=== PATIENT | female | born 1945 | race Caucasian/White ===

== ENCOUNTER 2024-03-04 16:37 | Inpatient (IN) | payer MEDICARE ==
[~2024-03-04] VITALS: Ht 170.2 cm; Wt 79.4 kg
[2024-03-04] MEDS: IV NS 0.9% 1,000 ML BAG IV ONE ×2 (17:05→18:15)
[2024-03-04 17:23] LABS: BASOPHILS % (AUTO) 0.3 % (0.0-2.0); EOSINOPHILS % (AUTO) 0.7 % (0.0-6.0); HEMATOCRIT 43 % (33-45); HEMOGLOBIN 13.5 g/dL (11.5-14.8); LYMPHOCYTES # (AUTO) 1.2 K/uL (0.8-4.8); LYMPHOCYTES % (AUTO) 19.9 % (20.0-44.0); MEAN CORPUSCULAR HEMOGLOBIN 29 PG (26.0-33.0); MEAN CORPUSCULAR HGB CONC 32 g/dl (31.0-36.0); MEAN CORPUSCULAR VOLUME 92 fL (82-100); MONOCYTES # (AUTO) 0.4 K/uL (0.1-1.30); MONOCYTES % (AUTO) 6.6 % (2.0-12.0); NEUTROPHILS # (AUTO) 4.4 K/uL (1.8-8.9); NEUTROPHILS % (AUTO) 72.5 % (43.0-81.0); PLATELET COUNT (AUTO) 334 K/uL (150-450); RED BLOOD CELL COUNT(AUTO) 4.63 MIL/uL (4.0-5.2); RED CELL DISTRIBUTION WIDTH 17.8 % (11.5-15.0); WHITE BLOOD COUNT (AUTO) 6.1 K/uL (4.3-11.0)
[2024-03-04] MEDS ORDERED: LOPE2CAP14 PO (17:34)
[2024-03-04] MEDS ORDERED: BUDE10.26 IH (17:34)
[2024-03-04] MEDS ORDERED: GEMTESA PO (17:34)
[2024-03-04] MEDS ORDERED: METO25TA4 PO (17:34)
[2024-03-04] MEDS ORDERED: DICL100G26 TP (17:34)
[2024-03-04] MEDS ORDERED: BISA10SU11 RC (17:34)
[2024-03-04] MEDS ORDERED: POTA10CA43 PO (17:34)
[2024-03-04] MEDS ORDERED: SUCR1TAB PO (17:34)
[2024-03-04] MEDS ORDERED: FOLI0.4T6 PO (17:34)
[2024-03-04] MEDS ORDERED: ALBU8.5H8 IH (17:34)
[2024-03-04] MEDS ORDERED: SPIR25TA PO (17:34)
[2024-03-04] MEDS ORDERED: MUPI22OI2 TP (17:34)
[2024-03-04] MEDS ORDERED: MELA3TAB41 PO (17:34)
[2024-03-04] MEDS ORDERED: MAG-135 PO (17:34)
[2024-03-04] MEDS ORDERED: EZET10TA15 PO (17:34)
[2024-03-04] MEDS ORDERED: IPRA3AMP22 IH (17:34)
[2024-03-04] MEDS ORDERED: ACET-2030 PO (17:34)
[2024-03-04] MEDS ORDERED: BENZ-13 PO (17:34)
[2024-03-04] MEDS ORDERED: PANT40TA2 PO (17:34)
[2024-03-04] MEDS ORDERED: CRAN500T3 PO (17:34)
[2024-03-04] MEDS ORDERED: SACU1TAB PO (17:34)
[2024-03-04] MEDS ORDERED: DOCU100C36 PO (17:34)
[2024-03-04] MEDS ORDERED: DULO60CA64 PO (17:34)
[2024-03-04] MEDS ORDERED: MAGN400O6 PO (17:34)
[2024-03-04] MEDS ORDERED: NYST30CR2 TP (17:34)
[2024-03-04] MEDS ORDERED: LIDO1ADH82 TP (17:34)
[2024-03-04] MEDS ORDERED: OMEG100037 PO (17:34)
[2024-03-04] MEDS ORDERED: FURO-144 PO (17:34)
[2024-03-04] MEDS ORDERED: FLUT16SP BNOSTRILS (17:34)
[2024-03-04] MEDS ORDERED: AMIO100T4 PO (17:34)
[2024-03-04] MEDS ORDERED: CANA100T PO (17:34)
[2024-03-04] MEDS ORDERED: SODI4VIA15 IH (17:34)
[2024-03-04] MEDS ORDERED: GUAI600T31 PO (17:34)
[2024-03-04] MEDS ORDERED: MAGN1TAB7 PO (17:34)
[2024-03-04] MEDS ORDERED: ATOR80TA PO (17:34)
[2024-03-04] MEDS ORDERED: APIX5TAB PO (17:34)
[2024-03-04 17:47] LABS: ALANINE AMINOTRANSFERASE 51 U/L (12-78); ALKALINE PHOSPHATASE 94 U/L (46-116); ASPARTATE AMINOTRANSFERASE 22 U/L (15-37); BILIRUBIN,DIRECT 0.1 mg/dL (0.0-0.2); BILIRUBIN,TOTAL 0.5 mg/dL (0.2-1.0); CALCIUM, SERUM 8.9 mg/dL (8.5-10.1); CARBON DIOXIDE 29 mmol/L (21-32); CHLORIDE 103 mmol/L (98-107); CREATININE 1.1 mg/dL (0.6-1.3); GLUCOSE 120 mg/dL (74-106); POTASSIUM 3.6 mmol/L (3.5-5.1); SODIUM SERUM 141 mmol/L (136-145); TOTAL PROTEIN, SERUM 6.7 g/dL (6.4-8.2); UREA NITROGEN, BLOOD 13 mg/dL (7-18)
[2024-03-04 17:57] LABS: LACTIC ACID 2.4 mmol/L (0.4-2.0)
[2024-03-04 18:04] LABS: INR 0.97 (0.91-1.10); PARTIAL THROMBOPLASTIN TIME 28.2 SEC (24.3-34.3); PROTHROMBIN TIME 10.3 SECS (9.2-11.1)
[2024-03-04] MEDS: PIPERACILLIN /TAZOBACTAM 3.375 G in IV D5W 50 ML IV ONE (18:20)
[2024-03-04] MEDS ORDERED: ASPIRIN 81 MG TAB.CHEW PO ONE (19:30)
[2024-03-04] MEDS ORDERED: FAMOTIDINE/PF INJ 20 MG/2 ML VIAL IV ONE (19:30)
[2024-03-04] MEDS ORDERED: MAG HYDROX/AL HYDROX/SIMETH 30 ML UDC PO ONE (19:30)
[2024-03-04] MEDS ORDERED: ACETAMINOPHEN 325 MG TABLET ONE (19:33)
[2024-03-04] MEDS: ACETAMINOPHEN 325 MG TABLET PO ONE (19:36)
[2024-03-04] MEDS ORDERED: ACETAMINOPHEN 325 MG TABLET PO PRN (20:00)
[2024-03-04] MEDS ORDERED: MAGNESIUM HYDROXIDE 30 ML UDC PO PRN (20:00)
[2024-03-04] MEDS ORDERED: ZOLPIDEM TARTRATE 5 MG TABLET PO PRN (20:00)
[2024-03-04] MEDS ORDERED: MAG HYDROX/AL HYDROX/SIMETH 30 ML UDC PO PRN (20:00)
[2024-03-04] MEDS ORDERED: Z GUARD REMEDY 4 OZ OINT TP PRN (20:00)
[2024-03-04] MEDS ORDERED: ONDANSETRON HCL/PF 4 MG/2 ML VIAL IVP PRN (20:00)
[2024-03-04] MEDS ORDERED: BISACODYL SUPP (10 MG) 10 MG/SUPP.RECT SUPP.RECT RC PRN (20:30)
[2024-03-04 21:25] VITALS: BP 130/41; TEMP 98.1; O2SAT 98
[2024-03-04] MEDS: IV NS 0.9% 1,000 ML IV PRN (22:18)
[2024-03-04] MEDS ORDERED: CEFTRIAXONE 1GM BAG (ER ONLY) 50 ML IV ONE (22:19)
[2024-03-04] MEDS: CEFTRIAXONE 1 G in IV D5W 50 ML IV SCH (22:29)
[2024-03-04] MEDS ORDERED: ALBUTEROL FS 2.5 MG/3 ML VIAL.NEB NEB PRN (22:30)
[2024-03-04] MEDS: SUCRALFATE 1 G TABLET PO SCH (22:55)
[2024-03-04] MEDS ORDERED: MELATONIN 3 MG TABLET PO PRN (23:00)
[2024-03-05] VITALS (12 sets, daily range): BP systolic 103–121; BP diastolic 56–73; TEMP 97.5–98.4; O2SAT 60–99
[2024-03-05 02:14] LABS: APPEARANCE,URINE CLEAR (CLEAR); BILIRUBIN,URINE NEGATIVE (NEGATIVE); BLOOD, URINE TRACE-INTA Ery/uL (NEGATIVE); COLOR,URINE YELLOW (YELLOW); KETONES,URINE NEGATIVE (NEGATIVE); LEUKOCYTE ESTERASE ,URINE 2+ (NEGATIVE); NITRITE, URINE NEGATIVE (NEGATIVE); PROTEIN,URINE NEGATIVE (NEGATIVE); UGLUCOSE 3+ mg/dL (NEGATIVE); UROBILINOGEN,URINE 0.2 EU/dL (0.2)
[2024-03-05 02:44] LABS: ADD URINE CULTURE YES; BACTERIA,URINE 2+ /HPF (None Seen); RBC,URINE NONE SEEN /HPF (0-2); WBC,URINE 21-50 /HPF (0-3)
[2024-03-05 06:02] LABS: BASOPHILS % (AUTO) 0.2 % (0.0-2.0); EOSINOPHILS % (AUTO) 0.7 % (0.0-6.0); HEMATOCRIT 28 % (33-45); HEMOGLOBIN 8.6 g/dL (11.5-14.8); LYMPHOCYTES % (AUTO) 25.3 % (20.0-44.0); MEAN CORPUSCULAR HEMOGLOBIN 30 PG (26.0-33.0); MEAN CORPUSCULAR HGB CONC 31 g/dl (31.0-36.0); MEAN CORPUSCULAR VOLUME 96 fL (82-100); MONOCYTES # (AUTO) 0.5 K/uL (0.1-1.30); MONOCYTES % (AUTO) 11.9 % (2.0-12.0); NEUTROPHILS # (AUTO) 2.5 K/uL (1.8-8.9); NEUTROPHILS % (AUTO) 61.9 % (43.0-81.0); PLATELET COUNT (AUTO) 191 K/uL (150-450)
[2024-03-05 06:20] LABS: UREA NITROGEN, BLOOD 3 mg/dL (7-18)
[2024-03-05] MEDS ORDERED: Medication Not On Formulary EA (Canagliflozin (Invokana) 100 MG) PO SCH (07:30)
[2024-03-05 07:43] LABS: CREATININE 0.1 mg/dL (0.6-1.3); SODIUM SERUM 155 mmol/L (136-145)
[2024-03-05 08:11] LABS: CHLORIDE 135 mmol/L (98-107); POTASSIUM 1.2 mmol/L (3.5-5.1)
[2024-03-05 08:12] LABS: ALBUMIN 0.2 g/dL (3.4-5.0); CALCIUM, SERUM 2.6 mg/dL (8.5-10.1); CARBON DIOXIDE 8 mmol/L (21-32); GLUCOSE 37 mg/dL (74-106); MAGNESIUM 0.6 mg/dL (1.8-2.4)
[2024-03-05] MEDS: EZETIMIBE 10 MG TABLET PO SCH (08:48)
[2024-03-05] MEDS: SPIRONOLACTONE 25 MG TABLET PO SCH (08:49)
[2024-03-05] MEDS: AMIODARONE HCL 200 MG TABLET PO SCH (08:49)
[2024-03-05] MEDS: DULOXETINE HCL 30 MG CAPSULE.DR PO SCH (08:49)
[2024-03-05] MEDS: METOPROLOL SUCCINATE 25 MG TAB.SR.24H PO SCH (08:53)
[2024-03-05] MEDS: SACUBITRIL/VALSARTAN 24/26MG TABLET PO SCH (08:53)
[2024-03-05] MEDS: APIXABAN 5 MG TABLET PO SCH (08:55)
[2024-03-05] MEDS: IPRATROPIUM NEB FS 0.5 MG/2.5 ML AMPUL.NEB NEB SCH (09:00)
[2024-03-05] MEDS: ALBUTEROL FS 2.5 MG/3 ML VIAL.NEB NEB SCH (09:00)
[2024-03-05] MEDS: FLUTICASONE PROPIONATE 16 GM BOTTLE NS SCH (09:55)
[2024-03-05] MEDS: MUPIROCIN OINT 2% 22 GM TUBE TP SCH (09:55)
[2024-03-05 10:38] LABS: BASOPHILS % (AUTO) 0.3 % (0.0-2.0); EOSINOPHILS % (AUTO) 0.8 % (0.0-6.0); HEMATOCRIT 40 % (33-45); HEMOGLOBIN 12.7 g/dL (11.5-14.8); LYMPHOCYTES % (AUTO) 17.7 % (20.0-44.0); MEAN CORPUSCULAR HEMOGLOBIN 29 PG (26.0-33.0); MEAN CORPUSCULAR HGB CONC 32 g/dl (31.0-36.0); MEAN CORPUSCULAR VOLUME 90 fL (82-100); MONOCYTES # (AUTO) 0.4 K/uL (0.1-1.30); MONOCYTES % (AUTO) 7.4 % (2.0-12.0); NEUTROPHILS # (AUTO) 4.2 K/uL (1.8-8.9); NEUTROPHILS % (AUTO) 73.8 % (43.0-81.0); PLATELET COUNT (AUTO) 311 K/uL (150-450); RED BLOOD CELL COUNT(AUTO) 4.41 MIL/uL (4.0-5.2); RED CELL DISTRIBUTION WIDTH 17.6 % (11.5-15.0); WHITE BLOOD COUNT (AUTO) 5.6 K/uL (4.3-11.0)
[2024-03-05 10:50] LABS: CALCIUM, SERUM 8.4 mg/dL (8.5-10.1); CARBON DIOXIDE 28 mmol/L (21-32); CHLORIDE 109 mmol/L (98-107); CREATININE 1.1 mg/dL (0.6-1.3); GLUCOSE 121 mg/dL (74-106); POTASSIUM 3.9 mmol/L (3.5-5.1); SODIUM SERUM 143 mmol/L (136-145); UREA NITROGEN, BLOOD 11 mg/dL (7-18)
[2024-03-05 10:56] LABS: ALANINE AMINOTRANSFERASE 43 U/L (12-78); ALBUMIN 2.7 g/dL (3.4-5.0); ALKALINE PHOSPHATASE 89 U/L (46-116); ASPARTATE AMINOTRANSFERASE 17 U/L (15-37); BILIRUBIN,TOTAL 0.4 mg/dL (0.2-1.0); TOTAL PROTEIN, SERUM 6.3 g/dL (6.4-8.2)
[2024-03-05] MEDS: DAPAGLIFLOZIN PROPANEDIOL 5 MG TABLET PO SCH (11:00)
[2024-03-05] MEDS: BUDESONIDE RESPULE INH 0.5 MG/2 ML AMPUL.NEB IH SCH (11:37)
[2024-03-05 12:12] LABS: ALBUMIN 2.7 g/dL (3.4-5.0); MAGNESIUM 2.3 mg/dL (1.8-2.4)
[2024-03-05] MEDS: ATORVASTATIN 40 MG TABLET PO SCH (21:05)
[2024-03-06] VITALS (9 sets, daily range): BP systolic 101–132; BP diastolic 58–90; TEMP 97.1–98.1; O2SAT 76–98
[2024-03-06 06:53] LABS: BASOPHILS % (AUTO) 0.4 % (0.0-2.0); EOSINOPHILS % (AUTO) 0.5 % (0.0-6.0); HEMATOCRIT 35 % (33-45); HEMOGLOBIN 11.4 g/dL (11.5-14.8); LYMPHOCYTES % (AUTO) 22.2 % (20.0-44.0); MEAN CORPUSCULAR HEMOGLOBIN 29 PG (26.0-33.0); MEAN CORPUSCULAR HGB CONC 33 g/dl (31.0-36.0); MEAN CORPUSCULAR VOLUME 89 fL (82-100); MONOCYTES # (AUTO) 0.3 K/uL (0.1-1.30); MONOCYTES % (AUTO) 6.8 % (2.0-12.0); NEUTROPHILS # (AUTO) 3.2 K/uL (1.8-8.9); NEUTROPHILS % (AUTO) 70.1 % (43.0-81.0); PLATELET COUNT (AUTO) 293 K/uL (150-450); RED BLOOD CELL COUNT(AUTO) 3.93 MIL/uL (4.0-5.2); RED CELL DISTRIBUTION WIDTH 17.6 % (11.5-15.0); WHITE BLOOD COUNT (AUTO) 4.6 K/uL (4.3-11.0)
[2024-03-06 07:05] LABS: CALCIUM, SERUM 8.9 mg/dL (8.5-10.1); CARBON DIOXIDE 31 mmol/L (21-32); CHLORIDE 107 mmol/L (98-107); GLUCOSE 118 mg/dL (74-106); POTASSIUM 4.2 mmol/L (3.5-5.1); SODIUM SERUM 142 mmol/L (136-145); UREA NITROGEN, BLOOD 12 mg/dL (7-18)
[2024-03-06] MEDS: FUROSEMIDE 40 MG TABLET PO SCH (09:21)
[2024-03-06] MEDS: BUDESONIDE RESPULE INH 0.5 MG/2 ML AMPUL.NEB IH SCH (10:00)
[2024-03-07] VITALS (10 sets, daily range): BP systolic 106–128; BP diastolic 71–95; TEMP 97.5–99.1; O2SAT 76–98
[2024-03-07 07:13] LABS: BASOPHILS % (AUTO) 0.4 % (0.0-2.0); CALCIUM, SERUM 9.3 mg/dL (8.5-10.1); CARBON DIOXIDE 24 mmol/L (21-32); CHLORIDE 106 mmol/L (98-107); CREATININE 0.9 mg/dL (0.6-1.3); EOSINOPHILS % (AUTO) 0.8 % (0.0-6.0); GLUCOSE 117 mg/dL (74-106); HEMATOCRIT 37 % (33-45); HEMOGLOBIN 11.9 g/dL (11.5-14.8); LYMPHOCYTES % (AUTO) 20.3 % (20.0-44.0); MEAN CORPUSCULAR HEMOGLOBIN 29 PG (26.0-33.0); MEAN CORPUSCULAR HGB CONC 33 g/dl (31.0-36.0); MEAN CORPUSCULAR VOLUME 89 fL (82-100); MONOCYTES # (AUTO) 0.3 K/uL (0.1-1.30); MONOCYTES % (AUTO) 6.1 % (2.0-12.0); NEUTROPHILS # (AUTO) 3.7 K/uL (1.8-8.9); NEUTROPHILS % (AUTO) 72.4 % (43.0-81.0); PLATELET COUNT (AUTO) 313 K/uL (150-450); POTASSIUM 4.5 mmol/L (3.5-5.1); RED BLOOD CELL COUNT(AUTO) 4.14 MIL/uL (4.0-5.2); RED CELL DISTRIBUTION WIDTH 17.5 % (11.5-15.0); SODIUM SERUM 141 mmol/L (136-145); UREA NITROGEN, BLOOD 14 mg/dL (7-18); WHITE BLOOD COUNT (AUTO) 5.1 K/uL (4.3-11.0)
[2024-03-07] MEDS: CLOTRIMAZOLE 1% 15 GM TUBE TP SCH (17:10)
[2024-03-08 07:00] VITALS: BP 126/81; TEMP 97.8; O2SAT 95
[2024-03-08 08:03] VITALS: O2SAT 97
[2024-03-08 08:21] VITALS: O2SAT 98
[2024-03-08 11:58] VITALS: BP 126/81
[2024-03-08] MEDS: GUAIFENESIN LA 600 MG TABLET.SA PO PRN (11:59)
[2024-03-08] MEDS: DOCUSATE SODIUM 100 MG CAPSULE PO PRN (11:59)
[2024-03-08] MEDS: BENZONATATE 100 MG CAPSULE PO PRN (11:59)
[2024-03-08 13:10] VITALS: O2SAT 97
[2024-03-08 13:29] VITALS: O2SAT 98
[2024-03-08] MEDS ORDERED: CANA100T PO (18:57)
== END 2024-03-08 15:20 | DRG 690 ==
LOC: ER 16:45 → TELE 21:09 → MED 21:29 → TELE 23:56 → MED 03-06 18:56
PROVIDERS: ADMIT Nurse Practitioner Family; ATTEND Internal Medicine
DX: N39.0 Urinary tract infection, site not specified (principal); E44.0 Moderate protein-calorie malnutrition; I50.32 Chronic diastolic (congestive) heart failure; E87.20 Acidosis, unspecified; I69.354 Hemiplegia and hemiparesis following cerebral infarction affecting left non-dominant side; E11.65 Type 2 diabetes mellitus with hyperglycemia; E88.09 Other disorders of plasma-protein metabolism, not elsewhere classified; I11.0 Hypertensive heart disease with heart failure; E78.5 Hyperlipidemia, unspecified; I25.10 Atherosclerotic heart disease of native coronary artery without angina pectoris; K21.9 Gastro-esophageal reflux disease without esophagitis; K59.00 Constipation, unspecified; Z85.3 Personal history of malignant neoplasm of breast; M19.90 Unspecified osteoarthritis, unspecified site; F32.A Depression, unspecified; I48.0 Paroxysmal atrial fibrillation; Z68.31 Body mass index [BMI] 31.0-31.9, adult; E66.9 Obesity, unspecified; Z88.5 Allergy status to narcotic agent; Z79.51 Long term (current) use of inhaled steroids; Z79.01 Long term (current) use of anticoagulants; Z79.899 Other long term (current) drug therapy; B96.89 Other specified bacterial agents as the cause of diseases classified elsewhere; Z87.440 Personal history of urinary (tract) infections; J45.909 Unspecified asthma, uncomplicated; Z98.890 Other specified postprocedural states; I95.9 Hypotension, unspecified
CPT/HCPCS: 36415; 71045-TC; 80048-TC; 80053-TC; 80076-TC; 81001; 82040-TC; 82962-TC; 83605-TC; 83735-TC; 84100-TC; 84484-TC; 85025-TC; 85730-TC; 87040-TC; 87081-TC; 87086-TC; 94799-TC; A4223; G0378; J0696; J2543; J7030; J7060

== ENCOUNTER 2024-07-27 02:04 | Emergency (ER) | payer BC, MEDICARE ==
[~2024-07-27] VITALS: Ht 165.1 cm; Wt 63.5 kg
[~2024-07-27 02:04] MED LIST: ACET-2030 PO; ALBU8.5H8 IH; AMIO100T4 PO; APIX5TAB PO; ATOR80TA PO; BENZ-13 PO; BISA10SU11 RC; BUDE10.26 IH; CANA100T PO; CRAN500T3 PO; DICL100G26 TP; DOCU100C36 PO; DULO60CA64 PO; EZET10TA15 PO; FLUT16SP BNOSTRILS; FOLI0.4T6 PO; FURO-144 PO; GEMTESA PO; GUAI600T31 PO; IPRA3AMP22 IH; LIDO1ADH82 TP; LOPE2CAP14 PO; MAG-135 PO; MAGN1TAB7 PO; MAGN400O6 PO; MELA3TAB41 PO; METO25TA4 PO; MUPI22OI2 TP; NYST30CR2 TP; OMEG100037 PO; PANT40TA2 PO; POTA10CA43 PO; SACU1TAB PO; SODI4VIA15 IH; SPIR25TA PO; SUCR1TAB PO
[2024-07-27] MEDS ORDERED: ONDANSETRON HCL/PF 4 MG/2 ML VIAL ONE (02:42)
[2024-07-27] MEDS ORDERED: DICYCLOMINE HCL INJ 20 MG/2 ML AMPUL IM ONE (02:42)
[2024-07-27 02:53] LABS: BASOPHILS % (AUTO) 0.3 % (0.0-2.0); EOSINOPHILS # (AUTO) 0.1 K/uL (0.0-0.7); EOSINOPHILS % (AUTO) 0.9 % (0.0-6.0); HEMATOCRIT 36 % (33-45); HEMOGLOBIN 11.9 g/dL (11.5-14.8); LYMPHOCYTES # (AUTO) 1.1 K/uL (0.8-4.8); LYMPHOCYTES % (AUTO) 16.9 % (20.0-44.0); MEAN CORPUSCULAR HEMOGLOBIN 30 PG (26.0-33.0); MEAN CORPUSCULAR HGB CONC 33 g/dl (31.0-36.0); MEAN CORPUSCULAR VOLUME 91 fL (82-100); MONOCYTES # (AUTO) 0.4 K/uL (0.1-1.30); MONOCYTES % (AUTO) 6.6 % (2.0-12.0); NEUTROPHILS % (AUTO) 75.3 % (43.0-81.0); PLATELET COUNT (AUTO) 355 K/uL (150-450); RED BLOOD CELL COUNT(AUTO) 3.98 MIL/uL (4.0-5.2); WHITE BLOOD COUNT (AUTO) 6.7 K/uL (4.3-11.0)
[2024-07-27 03:05] LABS: CALCIUM, SERUM 9.7 mg/dL (8.5-10.1); CARBON DIOXIDE 22 mmol/L (21-32); CHLORIDE 103 mmol/L (98-107); CREATININE 1.2 mg/dL (0.6-1.3); GLUCOSE 109 mg/dL (74-106); POTASSIUM 4.2 mmol/L (3.5-5.1); SODIUM SERUM 134 mmol/L (136-145); UREA NITROGEN, BLOOD 11 mg/dL (7-18)
[2024-07-27 03:08] LABS: ALANINE AMINOTRANSFERASE 32 U/L (12-78); ALBUMIN 3.3 g/dL (3.4-5.0); ALKALINE PHOSPHATASE 92 U/L (46-116); ASPARTATE AMINOTRANSFERASE 18 U/L (15-37); BILIRUBIN,DIRECT 0.2 mg/dL (0.0-0.2); BILIRUBIN,TOTAL 0.5 mg/dL (0.2-1.0); LIPASE 35 U/L (16-77); TOTAL PROTEIN, SERUM 6.7 g/dL (6.4-8.2)
[2024-07-27] MEDS: IV NS 0.9% 1,000 ML BAG IV ONE (03:08)
[2024-07-27] MEDS: DICYCLOMINE HCL INJ 20 MG/2 ML AMPUL IM ONE (03:08)
[2024-07-27] MEDS: ONDANSETRON HCL/PF 4 MG/2 ML VIAL IVP ONE (03:09)
[2024-07-27 04:23] LABS: APPEARANCE,URINE CLEAR (CLEAR); BILIRUBIN,URINE NEGATIVE (NEGATIVE); BLOOD, URINE 2+ Ery/uL (NEGATIVE); COLOR,URINE YELLOW (YELLOW); KETONES,URINE NEGATIVE (NEGATIVE); LEUKOCYTE ESTERASE ,URINE 1+ (NEGATIVE); NITRITE, URINE NEGATIVE (NEGATIVE); PH,URINE 5.5 (5.0-8.0); PROTEIN,URINE NEGATIVE (NEGATIVE); UGLUCOSE 3+ mg/dL (NEGATIVE); UROBILINOGEN,URINE 0.2 EU/dL (0.2)
[2024-07-27 04:28] LABS: ADD URINE CULTURE YES; BACTERIA,URINE Few /HPF (None Seen); SQUAMOUS EPITHELIAL CELL,UR Moderate /HPF (None Seen)
[2024-07-27] MEDS ORDERED: CEPH-570 PO (04:32)
[2024-07-27] MEDS ORDERED: ONDA4TAB5 PO (04:32)
[2024-07-27] MEDS ORDERED: CEPHALEXIN MONOHYDRATE 500 MG CAPSULE PO ONE (04:43)
[2024-07-27] MEDS: CEPHALEXIN MONOHYDRATE 500 MG CAPSULE PO ONE (04:45)
[2024-07-27 05:18] VITALS: BP 126/73; TEMP 98.7; O2SAT 98
== END 2024-07-27 05:18 ==
LOC: ER 02:20
DX: K52.9 Noninfective gastroenteritis and colitis, unspecified (principal); N39.0 Urinary tract infection, site not specified; E78.5 Hyperlipidemia, unspecified; I10 Essential (primary) hypertension; K21.9 Gastro-esophageal reflux disease without esophagitis; Z79.01 Long term (current) use of anticoagulants; Z79.84 Long term (current) use of oral hypoglycemic drugs; Z79.899 Other long term (current) drug therapy; Z85.3 Personal history of malignant neoplasm of breast; Z88.5 Allergy status to narcotic agent
CPT/HCPCS: 99285; 74176; 96374; 71045; 96361; 93005; 85025; 80048; 87086; 83690; 80076; 81001; 36415; 84484; 83880; 96372; J2405; J7030; J0500

== ENCOUNTER 2024-10-16 23:12 | Inpatient (IN) | payer MEDICARE, BC ==
[~2024-10-16] VITALS: Ht 167.6 cm; Wt 84.4 kg
[~2024-10-16 23:12] MED LIST changes: +CEPH-570 PO; +ONDA4TAB5 PO
[2024-10-16 23:32] VITALS: O2SAT 98
[2024-10-16] MEDS: IPRATROPIUM NEB FS 0.5 MG/2.5 ML AMPUL.NEB NEB ONE (23:32)
[2024-10-16] MEDS: ALBUTEROL FS 2.5 MG/3 ML VIAL.NEB CONTNEB ONE (23:32)
[2024-10-16] MEDS ORDERED: IPRATROPIUM NEB FS 0.5 MG/2.5 ML AMPUL.NEB ONE (23:40)
[2024-10-16] MEDS ORDERED: ALBUTEROL FS 2.5 MG/3 ML VIAL.NEB ONE (23:40)
[2024-10-16 23:42] VITALS: O2SAT 100
[2024-10-16 23:46] VITALS: O2SAT 99
[2024-10-16 23:56] VITALS: O2SAT 100
[2024-10-17] VITALS (12 sets, daily range): BP systolic 139–152; BP diastolic 67–75; TEMP 97.3–99; O2SAT 95–100
[2024-10-17 00:01] LABS: PLATELET COUNT (AUTO) 427 K/uL (150-450); RED BLOOD CELL COUNT(AUTO) 3.72 MIL/uL (4.0-5.2); RED CELL DISTRIBUTION WIDTH 15.9 % (11.5-15.0); WHITE BLOOD COUNT (AUTO) 6.2 K/uL (4.3-11.0)
[2024-10-17 00:15] LABS: ASPARTATE AMINOTRANSFERASE 38.0 U/L (15-37); CALCIUM, SERUM 9.2 mg/dL (8.5-10.1); CREATININE 1.1 mg/dL (0.6-1.3); SODIUM SERUM 138.0 mmol/L (136-145); TOTAL PROTEIN, SERUM 7.0 g/dL (6.4-8.2); UREA NITROGEN, BLOOD 12.0 mg/dL (7-18)
[2024-10-17] MEDS ORDERED: MAGNESIUM HYDROXIDE 30 ML UDC PO PRN (01:30)
[2024-10-17] MEDS ORDERED: DEXTROSE 50%-WATER 50 ML DISP.SYRIN IV PRN (01:30)
[2024-10-17] MEDS ORDERED: ONDANSETRON HCL/PF 4 MG/2 ML VIAL IVP PRN (01:30)
[2024-10-17] MEDS ORDERED: MAG HYDROX/AL HYDROX/SIMETH 30 ML UDC PO PRN (01:30)
[2024-10-17] MEDS ORDERED: ACETAMINOPHEN 325 MG TABLET PO PRN (01:30)
[2024-10-17] MEDS ORDERED: IPRATROPIUM NEB FS 0.5 MG/2.5 ML AMPUL.NEB NEB PRN (01:30)
[2024-10-17] MEDS ORDERED: ALBUTEROL FS 2.5 MG/3 ML VIAL.NEB NEB PRN (01:30)
[2024-10-17] MEDS ORDERED: POTA-10 PO (01:34)
[2024-10-17] MEDS ORDERED: CANA100T PO (01:52)
[2024-10-17] MEDS ORDERED: PRED20TA PO (01:52)
[2024-10-17] MEDS ORDERED: MIRT-121 PO (01:52)
[2024-10-17] MEDS ORDERED: PANT40TA49 PO (01:52)
[2024-10-17] MEDS ORDERED: METF-442 PO (01:52)
[2024-10-17] MEDS ORDERED: PRUC2TAB PO (01:52)
[2024-10-17] MEDS ORDERED: DOCUSATE SODIUM 100 MG CAPSULE PO PRN (03:00)
[2024-10-17] MEDS: ALBUTEROL FS 2.5 MG/3 ML VIAL.NEB NEB SCH ×2 (05:14→20:08)
[2024-10-17] MEDS: BLOOD SUGAR DIAGNOSTIC 1 EACH STRIP IN SCH (06:34)
[2024-10-17 07:31] LABS: PLATELET COUNT (AUTO) 401 K/uL (150-450); RED BLOOD CELL COUNT(AUTO) 3.71 MIL/uL (4.0-5.2); RED CELL DISTRIBUTION WIDTH 15.8 % (11.5-15.0); WHITE BLOOD COUNT (AUTO) 6.4 K/uL (4.3-11.0)
[2024-10-17 07:34] LABS: CALCIUM, SERUM 9.0 mg/dL (8.5-10.1); CREATININE 1.1 mg/dL (0.6-1.3); PHOSPHORUS 4.1 mg/dL (2.5-4.9); SODIUM SERUM 137.0 mmol/L (136-145); UREA NITROGEN, BLOOD 11.0 mg/dL (7-18)
[2024-10-17] MEDS: PANTOPRAZOLE 40 MG TABLET.DR PO SCH (08:10)
[2024-10-17] MEDS: METOPROLOL SUCCINATE 25 MG TAB.SR.24H PO SCH (08:43)
[2024-10-17] MEDS: EZETIMIBE 10 MG TABLET PO SCH (08:43)
[2024-10-17] MEDS: SUCRALFATE 1 G TABLET PO SCH (08:43)
[2024-10-17] MEDS: AMIODARONE HCL 200 MG TABLET PO SCH (08:44)
[2024-10-17] MEDS: APIXABAN 5 MG TABLET PO SCH (08:45)
[2024-10-17] MEDS: BUDESONIDE RESPULE INH 0.5 MG/2 ML AMPUL.NEB HHN SCH (09:04)
[2024-10-17] MEDS ORDERED: Z GUARD REMEDY 4 OZ OINT TP PRN (09:30)
[2024-10-17] MEDS: Z GUARD REMEDY 4 OZ OINT TP SCH (12:27)
[2024-10-17] MEDS: INSULIN REGULAR, HUMAN 100 UNIT/ML 3 ML VIAL SQ PRN (12:28)
[2024-10-17] MEDS: FLUTICASONE PROPIONATE 16 GM BOTTLE NS SCH (13:06)
[2024-10-17] MEDS: AZITHROMYCIN 250 MG TABLET PO ONE (15:39)
[2024-10-17] MEDS: AMOX/CLAVULANATE 875 MG TABLET PO SCH (15:39)
[2024-10-17] MEDS ORDERED: MIRTAZAPINE 15 MG TABLET PO SCH (18:00)
[2024-10-17] MEDS: ATORVASTATIN 40 MG TABLET PO SCH (21:13)
[2024-10-18] VITALS (12 sets, daily range): BP systolic 135–140; BP diastolic 59–81; TEMP 98.2–99; O2SAT 93–100
[2024-10-18] MEDS ORDERED: AZIT250T PO (08:24)
[2024-10-18] MEDS ORDERED: AMOX1TAB16 PO (08:24)
[2024-10-18] MEDS: INVOKANA 100 MG PO SCH (08:33)
[2024-10-18] MEDS: MOTEGRITY 2 MG PO SCH (08:34)
[2024-10-18] MEDS ORDERED: AMOX-430 PO (11:05)
[2024-10-18] MEDS ORDERED: AZIT250T13 PO (11:05)
[2024-10-18] MEDS ORDERED: AZITHROMYCIN 250 MG TABLET PO SCH (15:00)
== END 2024-10-18 15:20 | DRG 202 ==
LOC: ER 23:13 → TELE1 10-17 01:36
PROVIDERS: ADMIT Nurse Practitioner Acute Care; ATTEND Nurse Practitioner Acute Care
DX: J45.901 Unspecified asthma with (acute) exacerbation (principal); J96.01 Acute respiratory failure with hypoxia; I69.354 Hemiplegia and hemiparesis following cerebral infarction affecting left non-dominant side; E44.1 Mild protein-calorie malnutrition; K21.9 Gastro-esophageal reflux disease without esophagitis; I25.10 Atherosclerotic heart disease of native coronary artery without angina pectoris; Z20.822 Contact with and (suspected) exposure to COVID-19; E88.09 Other disorders of plasma-protein metabolism, not elsewhere classified; I10 Essential (primary) hypertension; Z85.3 Personal history of malignant neoplasm of breast; Z88.5 Allergy status to narcotic agent; D64.9 Anemia, unspecified; E11.9 Type 2 diabetes mellitus without complications; M19.90 Unspecified osteoarthritis, unspecified site; Z79.51 Long term (current) use of inhaled steroids; Z79.899 Other long term (current) drug therapy; Z79.01 Long term (current) use of anticoagulants; I48.91 Unspecified atrial fibrillation; E78.5 Hyperlipidemia, unspecified; Z79.84 Long term (current) use of oral hypoglycemic drugs; Z99.3 Dependence on wheelchair
CPT/HCPCS: 36415; 71045-TC; 71250-TC; 80048-TC; 80076-TC; 82962-TC; 83735-TC; 84100-TC; 85025-TC; 87081-TC; 94799-TC; 97110-TC; 97530-TC; A6213; G0378; J1815; J2919